=== PATIENT | female | born 1990 | race Hispanic/Latino ===

== ENCOUNTER → 2023-11-11 | Day surgery (SDC) | payer BC ==
[~2023-11-11] MED LIST: DICYCLOMINE HCL20 MG PO; FENTANYL CITRATE/PF 100MCG/2 ML INJ ONE; LIDOCAINE HCL 2% LOCAL INJ 5 ML SDV VIAL INJ ONE; MIDAZOLAM HCL 2 MG/2 ML VIAL ONE; PANTOPRAZOLE SO40 MG PO; PROPOFOL IV EMULSION 10 MG/ML 20 ML VIAL ONE; PROPOFOL IV EMULSION 10 MG/ML 50 ML VIAL IV ONE; SUCRALFATE1 GM PO
[2023-11-11] MEDS: LACTATED RINGER'S 1,000 ML ONE (10:12)
[2023-11-11 13:15] VITALS: BP 130/82; PULSE 70; RESP 18; TEMP 97.6; O2SAT 98
[2023-11-11 14:06] LABS: WBC,FECAL (FECAL LACTOFERRIN) NEGATIVE (NEGATIVE)
[2023-11-12 21:26] LABS: C-REACTIVE PROTEIN 3 mg/L (0-10)
[2023-11-15 08:15] LABS: ENDOMYSIAL ANTIBODIES, IGA Negative (Negative)
[2023-11-15 19:09] LABS: IMMUNOGLOBULIN A 342 mg/dL (87-352); TISSUE TRANSGLUTAMINASE IGA AB <2 U/mL (0-3)
== END | disposition home or self-care (01) ==
LOC: OR 09:39
PROVIDERS: ATTEND Internal Medicine Gastroenterology
DX: K52.9 Noninfective gastroenteritis and colitis, unspecified (principal); K62.89 Other specified diseases of anus and rectum; K64.8 Other hemorrhoids; K29.70 Gastritis, unspecified, without bleeding; K21.9 Gastro-esophageal reflux disease without esophagitis; F41.9 Anxiety disorder, unspecified; Z71.3 Dietary counseling and surveillance; Z68.36 Body mass index [BMI] 36.0-36.9, adult; Z86.2 Personal history of diseases of the blood and blood-forming organs and certain disorders involving the immune mechanism
CPT/HCPCS: 45380; 81025; 82784; 83516; 83630; 83993; 86140; 86256; 87045; 87177; 87324; 87328; 87449; C9113; J2001; J2250; J2704 ×2; J3010; J7121; 45378

== ENCOUNTER 2025-01-31 15:25 | Emergency (ER) | payer BC ==
[~2025-01-31 15:25] MED LIST changes: -FENTANYL CITRATE/PF 100MCG/2 ML INJ ONE; +FEROSUL325 MG PO; -LIDOCAINE HCL 2% LOCAL INJ 5 ML SDV VIAL INJ ONE; -MIDAZOLAM HCL 2 MG/2 ML VIAL ONE; -PROPOFOL IV EMULSION 10 MG/ML 20 ML VIAL ONE; -PROPOFOL IV EMULSION 10 MG/ML 50 ML VIAL IV ONE; +SUCRALFATE1 GM
== END 2025-01-31 15:50 | disposition left against medical advice (07) ==
LOC: ER 15:50
DX: R10.9 Unspecified abdominal pain (principal)

== ENCOUNTER → 2025-03-06 | Day surgery (SDC) | payer BC ==
[~2025-03-06] VITALS: Ht 167.6 cm; Wt 100.7 kg
[~2025-03-06] MED LIST changes: +LEVSIN0.125 MG PO; +PROMETHAZINE HC25 M1 PO; +PROMETHAZINE12.5 MG PR; +TRULANCE3 MG; +ULTRAM 50MG50 MG PO
[2025-03-06 12:25] VITALS: TEMP 98.4
[2025-03-06] MEDS: Morphine 4mg INJECTION 4 MG/ML INJ IV ONE (13:11)
[2025-03-06] MEDS: SODIUM CHLORIDE 0.9% 1000ML 1,000 ML IV STA (13:11)
[2025-03-06] MEDS: ONDANSETRON HCL INJ 2MG/ML 2ML 2 MG/ML VIAL IV STA (13:11)
[2025-03-06 13:16] LABS: BASOPHILS % 0.4 % (0.0-1.0); EOSINOPHILS % 2.0 % (0.0-6.0); LYMPHOCYTES % 26.6 % (18.0-39.1); MONOCYTES % 7.1 % (4.4-11.3); NEUTROPHILS % 63.6 % (38.7-80.0); RED CELL DISTRIBUTION WIDTH 21.4 % (11.7-14.4)
[2025-03-06] MEDS: FAMOTIDINE 20 MG/2 ML VIAL IV STA (13:29)
[2025-03-06 13:46] LABS: EST GLOMERULAR FILTRATION RATE 97.0 ML/MIN (>=60)
[2025-03-06] MEDS: PROMETHAZINE 25MG/ NS 50ML (IV) IV ONE (14:01)
[2025-03-06 14:32] VITALS: PULSE 78; RESP 20
[2025-03-06] MEDS: HYDROMORPHONE 1MG/1ML INJ IV STA (14:39)
[2025-03-06 15:24] VITALS: BP 155/70; O2SAT 100
== END | disposition home or self-care (01) ==
LOC: ER 12:18 → OR 15:00 → ER 15:23
PROVIDERS: ATTEND Internal Medicine Gastroenterology
DX: K22.2 Esophageal obstruction (principal); K21.00 Gastro-esophageal reflux disease with esophagitis, without bleeding; D72.820 Lymphocytosis (symptomatic); K29.50 Unspecified chronic gastritis without bleeding; K44.9 Diaphragmatic hernia without obstruction or gangrene; D64.9 Anemia, unspecified; E66.812 Obesity, class 2; Z68.36 Body mass index [BMI] 36.0-36.9, adult; Z79.899 Other long term (current) drug therapy; Z72.0 Tobacco use
CPT/HCPCS: 36415; 74176; 80053; 83690; 85025; 99284; J1171; J1308; J2270; J2405; J2470; J2550; J7030

== ENCOUNTER 2025-03-07 11:45 | Inpatient (IN) | payer BC ==
[~2025-03-07] VITALS: Ht 167.6 cm; Wt 100.7 kg
[~2025-03-07 11:45] MED LIST changes: -LEVSIN0.125 MG PO; -ULTRAM 50MG50 MG PO
[2025-03-07 12:26] VITALS: TEMP 98.2
[2025-03-07] MEDS: METOCLOPRAMIDE HCL 10 MG/2ML VIAL IV STA (12:40)
[2025-03-07] MEDS: SODIUM CHLORIDE 0.9% 1000ML 1,000 ML IV STA (12:40)
[2025-03-07] MEDS: ONDANSETRON HCL INJ 2MG/ML 2ML 2 MG/ML VIAL IV STA (12:40)
[2025-03-07 12:43] LABS: BASOPHILS % 0.3 % (0.0-1.0); EOSINOPHILS % 0.0 % (0.0-6.0); LYMPHOCYTES % 16.3 % (18.0-39.1); MONOCYTES % 8.7 % (4.4-11.3); NEUTROPHILS % 74.5 % (38.7-80.0); RED CELL DISTRIBUTION WIDTH 21.2 % (11.7-14.4)
[2025-03-07 12:52] LABS: LEUKOCYTE ESTERASE ,URINE NEGATIVE (NEGATIVE); PROTEIN,URINE DIPSTICK NEGATIVE (NEGATIVE); URINE UROBILINOGEN 0.2 mg/dL (0.2 - 1)
[2025-03-07 12:53] LABS: OPIATES SCREEN,URINE POSITIVE (NEGATIVE)
[2025-03-07 12:54] LABS: AMPHETAMINES SCREEN,URINE NEGATIVE (NEGATIVE); CANNABINOIDS SCREEN,URINE POSITIVE (NEGATIVE); COCAINE SCREEN,URINE NEGATIVE (NEGATIVE); METHADONE SCREEN, URINE NEGATIVE (NEGATIVE)
[2025-03-07 13:11] LABS: EPITHELIAL CELLS,URINE FEW /LPF; EST GLOMERULAR FILTRATION RATE 101.0 ML/MIN (>=60); WBC,URINE (MAN) 0-5 /HPF (0-5)
[2025-03-07] MEDS: LIDOCAINE VISC 2% SOLN 15 ML UDC PO STA (13:19)
[2025-03-07] MEDS: MAGNESIUM/ALUMINUM/SIMETHICONE 30 ML UDC PO STA (13:19)
[2025-03-07] MEDS: BELLADONNA ALK/PHENOBARBITAL 5 ML UDC PO ONE (13:19)
[2025-03-07] MEDS: KETOROLAC TROMETHAMINE 30 MG/ML VIAL IV STA ×2 (13:45→19:28)
[2025-03-07] MEDS: ONDANSETRON HCL INJ 2MG/ML 2ML 2 MG/ML VIAL IV PRN (16:57)
[2025-03-07] MEDS: HYOSCYAMINE SULFATE 0.5 MG/ML INJ IV STA (16:57)
[2025-03-07] MEDS: SODIUM CHLORIDE 0.9% 1000ML 1,000 ML IV SCH (16:59)
[2025-03-07] MEDS: DIAZEPAM INJ 5 MG/ML 2 ML IV STA (17:13)
[2025-03-07 17:15] VITALS: PULSE 86; RESP 18
[2025-03-07 17:50] VITALS: BP 146/78; PULSE 99; RESP 20; TEMP 98.9; O2SAT 100
[2025-03-07 19:50] VITALS: BP 146/78; PULSE 99; RESP 20; TEMP 98.9; O2SAT 100
[2025-03-07 20:00] VITALS: BP 156/97; PULSE 81; RESP 24; TEMP 97.9; O2SAT 81
[2025-03-07] MEDS ORDERED: LEVSIN0.125 MG PO (20:04)
[2025-03-07] MEDS: PROMETHAZINE 12.5MG/ NACL 0.9% 12.5 MG/50 ML BAG IV PRN (21:04)
[2025-03-08] VITALS (7 sets, daily range): BP systolic 148–168; BP diastolic 53–100; PULSE 68–115; RESP 17–20; TEMP 97.9–98.4; O2SAT 97–100
[2025-03-08] MEDS ORDERED: HYOSCYAMINE SULFATE 0.5 MG/ML INJ IV PRN
[2025-03-08] MEDS: PROMETHAZINE 12.5MG/ NACL 0.9% 12.5 MG/50 ML BAG IV ONE (00:39)
[2025-03-08] MEDS: HYOSCYAMINE SULFATE 0.5 MG/ML INJ IV STA (00:43)
[2025-03-08] MEDS: METOCLOPRAMIDE HCL 10 MG/2ML VIAL IV STA (00:43)
[2025-03-08 02:02] LABS: % IRON SATURATION 4.0 % (15-50)
[2025-03-08] MEDS: KETOROLAC TROMETHAMINE 30 MG/ML VIAL IV PRN (03:06)
[2025-03-08] MEDS: METOCLOPRAMIDE HCL 10 MG/2ML VIAL IV SCH (05:13)
[2025-03-08] MEDS: HYOSCYAMINE SULFATE 0.5 MG/ML INJ IV PRN (05:13)
[2025-03-08 06:55] LABS: BASOPHILS % 0.3 % (0.0-1.0); EOSINOPHILS % 0.0 % (0.0-6.0); LYMPHOCYTES % 20.1 % (18.0-39.1); MONOCYTES % 9.8 % (4.4-11.3); NEUTROPHILS % 69.4 % (38.7-80.0); RED CELL DISTRIBUTION WIDTH 21.1 % (11.7-14.4)
[2025-03-08 07:09] LABS: EST GLOMERULAR FILTRATION RATE 108.0 ML/MIN (>=60)
[2025-03-08] MEDS: POTASSIUM CHLORIDE 20 MEQ TAB CR PO STA (14:59)
[2025-03-08] MEDS: Morphine 2mg Syringe 2 MG/ML SYR IV PRN (14:59)
[2025-03-09] VITALS (9 sets, daily range): BP systolic 138–160; BP diastolic 80–94; PULSE 64–75; RESP 14–20; TEMP 97.5–98.2; O2SAT 95–100
[2025-03-09] MEDS: Morphine 2mg Syringe 2 MG/ML SYR IV PRN ×2 (03:43→22:41)
[2025-03-09] MEDS ORDERED: LIDOCAINE HCL 2% LOCAL INJ 5 ML SDV VIAL INJ ONE (06:41)
[2025-03-09] MEDS ORDERED: FENTANYL CITRATE/PF 100MCG/2 ML INJ ONE (06:42)
[2025-03-09] MEDS ORDERED: ROCURONIUM BROMIDE 1 ML IV ONE (06:42)
[2025-03-09] MEDS ORDERED: SUCCINYLCHOLINE CHLORIDE 20 MG/ML 10ML VIAL ONE (06:42)
[2025-03-09] MEDS ORDERED: PROPOFOL IV EMULSION 10 MG/ML 20 ML VIAL ONE (06:42)
[2025-03-09 06:48] LABS: BASOPHILS % 0.5 % (0.0-1.0); EOSINOPHILS % 0.2 % (0.0-6.0); LYMPHOCYTES % 24.5 % (18.0-39.1); MONOCYTES % 10.3 % (4.4-11.3); NEUTROPHILS % 64.3 % (38.7-80.0); RED CELL DISTRIBUTION WIDTH 21.0 % (11.7-14.4)
[2025-03-09 07:06] LABS: EST GLOMERULAR FILTRATION RATE 104.0 ML/MIN (>=60)
[2025-03-09] MEDS ORDERED: Morphine 10mg syringe 10 MG/ML INJ ONE (07:20)
[2025-03-09] MEDS ORDERED: SUGAMMADEX SODIUM 200 MG/2 ML VIAL IV ONE (07:32)
[2025-03-09] MEDS: FENTANYL CITRATE/PF 100MCG/2 ML INJ ONE (08:10)
[2025-03-09] MEDS: SODIUM CHLORIDE 0.9% 1000ML 1,000 ML IV SCH (08:51)
[2025-03-09] MEDS: ONDANSETRON HCL INJ 2MG/ML 2ML 2 MG/ML VIAL IV PRN (09:34)
[2025-03-09] MEDS: Morphine 4mg INJECTION 4 MG/ML INJ IV PRN ×2 (09:34→15:57)
[2025-03-09] MEDS ORDERED: SODIUM FERRIC GLUCONATE COMPLX 125 MG in SODIUM CHLORIDE 0.9% 100 ML IV SCH (10:00)
[2025-03-09] MEDS: HYDROCODONE/APAP 5MG-325MG TAB PO PRN (11:37)
[2025-03-10] VITALS (7 sets, daily range): BP systolic 129–149; BP diastolic 86–89; PULSE 62–70; RESP 16–20; TEMP 97.8–98.7; O2SAT 66–100
[2025-03-10] MEDS: CYANOCOBALAMIN INJ 1,000 MCG/ML VIAL IM ONE (00:38)
[2025-03-10] MEDS ORDERED: ULTRAM 50MG50 MG PO (05:57)
[2025-03-10 06:32] LABS: BASOPHILS % 0.4 % (0.0-1.0); EOSINOPHILS % 0.6 % (0.0-6.0); LYMPHOCYTES % 31.9 % (18.0-39.1); MONOCYTES % 9.2 % (4.4-11.3); NEUTROPHILS % 57.3 % (38.7-80.0); RED CELL DISTRIBUTION WIDTH 20.9 % (11.7-14.4)
[2025-03-10 07:09] LABS: EST GLOMERULAR FILTRATION RATE 104.0 ML/MIN (>=60)
[2025-03-10] MEDS: CYANOCOBALAMIN INJ 1,000 MCG/ML VIAL IM SCH (08:52)
[2025-03-10] MEDS: IRON SUCROSE 100 MG in SODIUM CHLORIDE 0.9% 100 ML IV SCH (08:52)
[2025-03-10] MEDS ORDERED: SODIUM FERRIC GLUCONATE COMPLX 125 MG in SODIUM CHLORIDE 0.9% 100 ML IV SCH (09:00)
[2025-03-10 09:25] LABS: PLATELET ESTIMATE ADEQUATE; PLATELET MORPHOLOGY COMMENT NORMAL; RBC MORPHOLOGY COMMENT ABNORMAL
== END 2025-03-10 17:15 | disposition home or self-care (01) | DRG 419 ==
LOC: ER 11:49 → ERHOLD 16:31 → MED/SURG2 17:45 → OBSVTOIN 03-08 13:35
PROVIDERS: ADMIT Internal Medicine; ATTEND Internal Medicine
PROC: 0FT44ZZ Resection of Gallbladder, Percutaneous Endoscopic Approach (ICD-10-PCS; principal; 2025-03-09 06:57)
DX: K81.9 Cholecystitis, unspecified (principal); K21.9 Gastro-esophageal reflux disease without esophagitis; N83.209 Unspecified ovarian cyst, unspecified side; K44.9 Diaphragmatic hernia without obstruction or gangrene; K29.70 Gastritis, unspecified, without bleeding; K20.90 Esophagitis, unspecified without bleeding; D50.9 Iron deficiency anemia, unspecified; K59.09 Other constipation; F12.10 Cannabis abuse, uncomplicated; E53.8 Deficiency of other specified B group vitamins; Z83.79 Family history of other diseases of the digestive system
CPT/HCPCS: 36415; 74018; 78226; 80048; 80053; 80307; 81001; 82607; 82728; 82746; 83540; 83690; 83735; 84466; 84702; 85025; 85045; 88304; 94799; 99284; A9537; G0378; J0330; J0690; J1756; J1885; J1980; J2003; J2270; J2405; J2470; J2550; J2765; J2916; J3360; J3420; J7030; J7050